=== PATIENT | female | born 1960 | race Caucasian/White ===

== ENCOUNTER 2021-10-09 15:59 | Emergency (ER) | payer BC, MEDICARE ==
[2021-10-09] MEDS ORDERED: Take Home: Doxycycline 100 MG Tab, 4 Tab Pack PO ONE (16:27)
== END 2021-10-09 16:37 | disposition home or self-care (01) ==
LOC: VM.ED 15:59
DX: L03.90 Cellulitis, unspecified (principal); Z88.1 Allergy status to other antibiotic agents
CPT/HCPCS: 99283; A9270-GY